=== PATIENT | female | born 1995 | race Two or more races ===

== ENCOUNTER 2017-07-07 08:44 | Emergency (ER) | payer MEDICAID ==
[~2017-07-07] VITALS: Ht 157.5 cm; Wt 68.0 kg
[2017-07-07] MEDS ORDERED: METOCLOPRAMIDE HCL 10MG/2ML VIAL IV ONE (09:30)
[2017-07-07] MEDS ORDERED: SODIUM CHLORIDE 0.9% 1,000 ML IV ONE (09:30)
[2017-07-07] MEDS ORDERED: KETOROLAC 30MG/ML VIAL IV STA (09:30)
[2017-07-07 10:55] VITALS: BP 105/71
== END 2017-07-07 11:07 | disposition home or self-care (01) ==
LOC: EDBD 08:44 → ER 08:44
DX: R51 Headache (principal); R11.2 Nausea with vomiting, unspecified
CPT/HCPCS: 81025; 96361; 96374; 96375; 99284; J1885; J2765; J7030; Z7610

== ENCOUNTER 2017-11-21 09:57 | Emergency (ER) | payer MEDICAID ==
[~2017-11-21] VITALS: Ht 157.5 cm; Wt 70.0 kg
[2017-11-21 10:13] VITALS: BP 106/66
== END 2017-11-21 12:08 | disposition left against medical advice (07) ==
LOC: ER 09:57
DX: Z53.21 Procedure and treatment not carried out due to patient leaving prior to being seen by health care provider (principal)
CPT/HCPCS: 81025

== ENCOUNTER 2018-06-01 17:45 | Emergency (ER) | payer SELFPAY ==
[~2018-06-01] VITALS: Ht 154.9 cm; Wt 72.0 kg
[2018-06-01 18:45] LABS: CLARITY URINE CLOUDY (CLEAR); COLOR URINE YELLOW (YELLOW); KETONES URINE NEGATIVE (NEGATIVE); LEUKOCYTE ESTERASE URINE TRACE (NEGATIVE); NITRITE URINE NEGATIVE (NEGATIVE); OCCULT BLOOD URINE 1+ (NEGATIVE); PH URINE 5.5 (4.5-8.0); PROTEIN URINE NEGATIVE (NEGATIVE); SPECIFIC GRAVITY URINE 1.023 (1.005-1.030); UROBILINOGEN URINE 0.2 E.U./dL (0.2-1.0)
[2018-06-01] MEDS ORDERED: ONDANSETRON 4MG ODT PO ONE (20:15)
[2018-06-01 20:33] LABS: HCG SCREEN NEGATIVE
[2018-06-01] MEDS ORDERED: CEPHALEXIN 250MG CAPSULE PO NR (21:00)
[2018-06-01 21:22] VITALS: BP 112/73
== END 2018-06-01 21:23 | disposition home or self-care (01) ==
LOC: ER 18:47
DX: N39.0 Urinary tract infection, site not specified (principal); R11.2 Nausea with vomiting, unspecified; J45.909 Unspecified asthma, uncomplicated
CPT/HCPCS: 81003; 81025; 84703; 99283; Q0162

== ENCOUNTER → 2018-06-01 | Emergency (ER) | payer SELFPAY ==
[~2018-06-01] VITALS: Ht 154.9 cm; Wt 72.0 kg
[2018-06-01 15:40] VITALS: BP 100/78
== END ==
LOC: ER 15:50
DX: Z53.21 Procedure and treatment not carried out due to patient leaving prior to being seen by health care provider (principal)

== ENCOUNTER 2018-12-24 12:57 | Emergency (ER) | payer MEDICAID ==
[~2018-12-24] VITALS: Ht 165.1 cm; Wt 70.0 kg
[2018-12-24 13:11] VITALS: BP 104/67
[2018-12-24] MEDS ORDERED: PREDNISONE 20MG TABLET PO ONE (14:15)
== END 2018-12-24 14:59 | disposition home or self-care (01) ==
LOC: ER 12:57
DX: R21 Rash and other nonspecific skin eruption (principal); J45.909 Unspecified asthma, uncomplicated
CPT/HCPCS: 99283; J7512

== ENCOUNTER 2019-12-04 12:03 | Emergency (ER) | payer MEDICAID ==
[~2019-12-04] VITALS: Ht 154.9 cm; Wt 71.0 kg
[2019-12-04 13:06] LABS: BASOPHILS % 0.3 % (0.0-2.0); EOSINOPHILS % 3.8 % (0.0-5.0); HEMATOCRIT. 37.1 % (36.0-48.0); HEMOGLOBIN. 12.3 g/dL (12.0-16.0); LYMPHOCYTES % 28.2 % (20.0-50.0); MEAN CORPUSCULAR HEMOGLOBIN 29.2 pg (28.0-32.0); MEAN CORPUSCULAR VOLUME 87.9 fL (81.0-99.0); MEAN PLATELET VOLUME 10.6 fl (7.4-10.4); NEUTROPHILS % 60.7 % (40.0-76.0); PLATELET 250 x1000/uL (130-400); RED BLOOD CELL COUNT 4.22 mill/uL (4.2-5.4)
[2019-12-04 13:11] LABS: COLOR URINE YELLOW (YELLOW); KETONES URINE NEGATIVE (NEGATIVE); LEUKOCYTE ESTERASE URINE NEGATIVE (NEGATIVE); NITRITE URINE NEGATIVE (NEGATIVE); OCCULT BLOOD URINE 2+ (NEGATIVE); PROTEIN URINE NEGATIVE (NEGATIVE); SPECIFIC GRAVITY URINE 1.014 (1.005-1.030); UROBILINOGEN URINE 0.2 E.U./dL (0.2-1.0)
[2019-12-04 13:12] LABS: CLARITY URINE SL HAZY (CLEAR)
[2019-12-04 13:16] LABS: CHLORIDE 108 mEq/L (98-107)
[2019-12-04 13:21] LABS: HCG SCREEN NEGATIVE
[2019-12-04 15:01] VITALS: BP 103/67
== END 2019-12-04 15:02 | disposition home or self-care (01) ==
LOC: ER 12:03
DX: N93.9 Abnormal uterine and vaginal bleeding, unspecified (principal); R11.0 Nausea; J45.909 Unspecified asthma, uncomplicated
CPT/HCPCS: 36415; 76830; 76856; 80053; 81003; 81025; 84703; 85025; 86850; 86900; 93005; 99285

== ENCOUNTER 2020-01-27 09:17 | Emergency (ER) | payer MEDICAID ==
[~2020-01-27] VITALS: Ht 154.9 cm; Wt 65.0 kg
[2020-01-27 09:32] VITALS: BP 126/79
[2020-01-27] MEDS ORDERED: IBUPROFEN 800MG TABLET PO ONE (10:00)
[2020-01-27] MEDS ORDERED: ACETAMINOPHEN 500MG TABLET PO ONE (10:00)
== END 2020-01-27 11:26 | disposition home or self-care (01) ==
LOC: ER 09:17
DX: S29.012A Strain of muscle and tendon of back wall of thorax, initial encounter (principal); S21.90XA Unspecified open wound of unspecified part of thorax, initial encounter; W18.30XA Fall on same level, unspecified, initial encounter; Y93.89 Activity, other specified; Y92.89 Other specified places as the place of occurrence of the external cause; Y99.8 Other external cause status
CPT/HCPCS: 72050; 81025; 99283

== ENCOUNTER 2020-11-26 13:21 | Emergency (ER) | payer MEDICAID, OTHER ==
[~2020-11-26] VITALS: Ht 154.9 cm; Wt 73.0 kg
[2020-11-26 13:57] VITALS: BP 112/73
[2020-11-26] MEDS ORDERED: IBUP-2030 MT (15:24)
== END 2020-11-26 16:31 | disposition home or self-care (01) ==
LOC: ER 13:21
DX: S62.623A Displaced fracture of middle phalanx of left middle finger, initial encounter for closed fracture (principal); S56.19 Other injury of flexor muscle, fascia and tendon of other and unspecified finger at forearm level; D64.9 Anemia, unspecified; J45.909 Unspecified asthma, uncomplicated; W22.8XXA Striking against or struck by other objects, initial encounter; Y93.89 Activity, other specified; Y92.89 Other specified places as the place of occurrence of the external cause
CPT/HCPCS: 29130; 73140; 99283

== ENCOUNTER 2021-04-28 20:28 | Emergency (ER) | payer MEDICAID, OTHER ==
[~2021-04-28] VITALS: Ht 154.9 cm; Wt 73.0 kg
[~2021-04-28 20:28] MED LIST: IBUP-2030 MT
[2021-04-28] MEDS ORDERED: HYDROCODONE/ACETAMINOPHEN 5/325MG TABLET PO ONE (22:30)
[2021-04-28] MEDS ORDERED: AMOX-424 MT (22:47)
[2021-04-28] MEDS ORDERED: IBUP-2030 MT (22:47)
[2021-04-28] MEDS ORDERED: HYDR-4001 MT (22:47)
[2021-04-28 23:28] VITALS: BP 138/78
== END 2021-04-28 23:36 | disposition home or self-care (01) ==
LOC: ER 20:28
DX: K04.7 Periapical abscess without sinus (principal)
CPT/HCPCS: 99281

== ENCOUNTER 2021-11-01 09:55 | Emergency (ER) | payer MEDICAID, OTHER ==
[~2021-11-01] VITALS: Ht 154.9 cm; Wt 74.0 kg
[~2021-11-01 09:55] MED LIST changes: +AMOX-424 MT; +HYDR-4001 MT
[2021-11-01] MEDS ORDERED: ACETAMINOPHEN WITH CODEINE 300/30MG TABLET PO ONE (11:30)
[2021-11-01 11:48] VITALS: BP 128/89
== END 2021-11-01 13:50 | disposition home or self-care (01) ==
LOC: ER 10:02
DX: S93.525A Sprain of metatarsophalangeal joint of left lesser toe(s), initial encounter (principal); M79.675 Pain in left toe(s); X58.XXXA Exposure to other specified factors, initial encounter; Y93.89 Activity, other specified; Y92.89 Other specified places as the place of occurrence of the external cause; Y99.8 Other external cause status; D64.9 Anemia, unspecified; J45.909 Unspecified asthma, uncomplicated
CPT/HCPCS: 73630; 99283; Z7610

== ENCOUNTER 2023-01-05 06:47 | Emergency (ER) | payer OTHER, MEDICAID ==
[~2023-01-05] VITALS: Ht 154.9 cm; Wt 75.0 kg
[2023-01-05 07:05] VITALS: BP 112/74; PULSE 69; RESP 17; TEMP 97.9; O2SAT 98
[2023-01-05] MEDS ORDERED: TOPUD PO (10:09)
== END 2023-01-05 10:36 | disposition home or self-care (01) ==
LOC: ER 06:47
DX: M79.18 Myalgia, other site (principal); J45.909 Unspecified asthma, uncomplicated
CPT/HCPCS: 70486; 73030; 81025; 99284